=== PATIENT | male | born 1980 | race Hispanic/Latino ===

== ENCOUNTER 2024-05-11 06:47 | Inpatient (IN) | payer SELFPAY ==
[2024-05-11] MEDS ORDERED: Morphine 4 MG/ML VIAL ONE ×2 (07:41→09:50)
[2024-05-11] MEDS ORDERED: Ondansetron PF 4 MG/2 ML Vial ONE (07:41)
[2024-05-11 08:03] LABS: #Basophils 0.04 10x3/uL (0.0-0.2); %Basophils 0.6 % (0.0-1.0); %Eosinophils 13.8 % (0.0-10.0); %Lymphocytes 20.5 % (21.0-51.0); %Monocytes 7.1 % (0.0-10.0); %Neutrophils 57.7 % (42.0-75.0); Hematocrit 40.4 % (42.0-52.0); Hemoglobin 14.3 g/dL (14.0-18.0); Mean Corpuscular HGB CONC 35.4 g/dL (32.0-36.0); Mean Corpuscular Hemoglobin 28.4 pg (27.0-31.0); Mean Corpuscular Volume 80.2 fL (78.0-98.0); Mean Platelet Volume 10.3 fL (7.4-10.4); Platelet Count 245 10x3/uL (130-400); RBC Distribution Width 11.9 % (11.5-14.5); Red Blood Cell (RBC) Count 5.04 mill/uL (4.70-6.10)
[2024-05-11 08:16] LABS: ALT (SGPT) 43 U/L (8-55); AST (SGOT) 27 U/L (5-34); Albumin 3.6 g/dL (3.5-5.0); Alkaline Phosphatase 102 U/L (40-110); Anion Gap 14 mmol/L (10-20); BUN (Urea Nitrogen) 14 mg/dL (8.9-20.6); Bilirubin, Total 0.7 mg/dL (0.2-1.2); Calc. Creatinine Clearance 0 mL/min (70-130); Calcium 9.3 mg/dL (7.8-10.44); Carbon Dioxide 24 mmol/L (22-29); Chloride 99 mmol/L (98-107); Estimated GFR 114; Globulin 3.5 g/dL (2.4-3.5); Glucose 301 mg/dL (70-105); Potassium 3.6 mmol/L (3.5-5.1); Protein, Total 7.1 g/dL (6.0-8.3); Sodium 133 mmol/L (136-145)
[2024-05-11] MEDS ORDERED: Sodium Chloride 0.9% 100 ML ONE (09:33)
[2024-05-11] MEDS ORDERED: Piperacillin/Tazobactam 4.5 GM VIAL ONE (09:33)
[2024-05-11] MEDS ORDERED: Ketorolac Tromethamine 30 MG (1 mL) VIAL ONE (09:49)
[2024-05-11 10:49] LABS: Hemoglobin A1c 12.1 % (4.0-6.0)
[2024-05-11] MEDS ORDERED: Ondansetron ODT 4 MG TAB PO PRN (11:09)
[2024-05-11] MEDS ORDERED: Ondansetron PF 4 MG/2 ML Vial IVP PRN (11:09)
[2024-05-11] MEDS ORDERED: Dextrose 5% in Water 1,000 ML IV PRN (11:13)
[2024-05-11] MEDS ORDERED: Dextrose 50% Abboject 50 ML SYRINGE SLOW IVP PRN (11:13)
[2024-05-11] MEDS ORDERED: Glucagon 1 MG/ML KIT IM PRN (11:13)
[2024-05-11] MEDS ORDERED: Acetaminophen 500 MG TAB PO PRN (11:13)
[2024-05-11 11:29] VITALS: BMI 30.3
[2024-05-11] MEDS: Vancomycin (BATCH) 2 GM in Premix 1 BAG IVPB SCH (11:55)
[2024-05-11] MEDS: FLU (Fluarix Triv) TS24-25(6MOS UP)/PF 45 MCG/0.5 ML Syringe IM ONE (12:25)
[2024-05-11] MEDS: Piperacillin/Tazobactam 3.375 GM in Sodium Chloride 0.9% 100 ML IVPB SCH (13:22)
[2024-05-11] MEDS: Insulin Lispro 100 UNIT/ML 10 ML VIAL SC PRN (13:22)
[2024-05-11] MEDS ORDERED: Iopamidol-370 76% 500 ML MDV (1 ML CHARGE) ONE (14:23)
[2024-05-11] MEDS: Acetaminophen/Codeine 30-300mg Tablet PO PRN (16:34)
[2024-05-11] MEDS: Senokot 8.6 MG TAB PO SCH (17:20)
[2024-05-12] MEDS: Acetaminophen/Codeine 30-300mg Tablet PO PRN (04:29)
[2024-05-12 07:34] LABS: #Basophils 0.03 10x3/uL (0.0-0.2); %Basophils 0.4 % (0.0-1.0); %Eosinophils 13.9 % (0.0-10.0); %Lymphocytes 19.3 % (21.0-51.0); %Neutrophils 58.1 % (42.0-75.0); Mean Corpuscular HGB CONC 35.1 g/dL (32.0-36.0); Mean Corpuscular Hemoglobin 28.4 pg (27.0-31.0); Mean Corpuscular Volume 80.8 fL (78.0-98.0); Mean Platelet Volume 10.8 fL (7.4-10.4); Platelet Count 223 10x3/uL (130-400); RBC Distribution Width 11.9 % (11.5-14.5); Red Blood Cell (RBC) Count 4.58 mill/uL (4.70-6.10)
[2024-05-12] MEDS: Insulin Glargine 30 UNITS/0.3 ML VIAL SC SCH ×2 (08:04→20:58)
[2024-05-12] MEDS: Lisinopril 10 MG TAB PO SCH (08:04)
[2024-05-12] MEDS: Enoxaparin 40 MG (0.4 mL) SYRINGE SC SCH (08:04)
[2024-05-12] MEDS: Hydrochlorothiazide 25 MG TAB PO SCH (08:05)
[2024-05-12] MEDS: Vancomycin (BATCH) 2 GM in Premix 1 BAG IVPB SCH (08:35)
[2024-05-12] MEDS: Ketorolac Tromethamine 30 MG (1 mL) VIAL IVP PRN (11:29)
[2024-05-12 11:43] VITALS: BMI 30.3
[2024-05-12] MEDS ORDERED: EPINEPHrine 1 MG/ML VIAL ONE (15:28)
[2024-05-12] MEDS ORDERED: Bupivacaine 0.25% HCL 30 ML VIAL ONE (15:28)
[2024-05-12] MEDS ORDERED: Lidocaine 1% PF 5 ML VIAL ONE (15:36)
[2024-05-12] MEDS ORDERED: Rocuronium Bromide 10 MG/ML (10ML VIAL) ONE (15:36)
[2024-05-12] MEDS ORDERED: Ondansetron PF 4 MG/2 ML Vial ONE (15:36)
[2024-05-12] MEDS ORDERED: fentaNYL PF 100 MCG/2 ML SYRINGE ONE (15:36)
[2024-05-12] MEDS ORDERED: PROPOFOL 20 ML ONE (15:36)
[2024-05-12] MEDS ORDERED: SUCCINYLCHOLINE/SOD CL,ISO/PF 200 MG/10 ML SYRINGE FS ONE (15:49)
[2024-05-12] MEDS ORDERED: SUGAMMADEX SODIUM 200 MG/2 ML VIAL ONE ×2 (16:08→16:26)
[2024-05-12] MEDS ORDERED: fentaNYL 50 mcg/mL 1 mL Vial ONE (17:02)
[2024-05-13] MEDS: Sodium Chloride 0.9% 100 ML ONE (00:34)
[2024-05-13 05:55] LABS: #Basophils 0.04 10x3/uL (0.0-0.2); %Basophils 0.6 % (0.0-1.0); %Eosinophils 10.1 % (0.0-10.0); %Lymphocytes 25.1 % (21.0-51.0); %Monocytes 7.3 % (0.0-10.0); %Neutrophils 56.8 % (42.0-75.0); Hematocrit 37.7 % (42.0-52.0); Hemoglobin 13.3 g/dL (14.0-18.0); Mean Corpuscular HGB CONC 35.3 g/dL (32.0-36.0); Mean Corpuscular Hemoglobin 28.5 pg (27.0-31.0); Mean Corpuscular Volume 80.9 fL (78.0-98.0); Mean Platelet Volume 10.2 fL (7.4-10.4); Platelet Count 238 10x3/uL (130-400); Red Blood Cell (RBC) Count 4.66 mill/uL (4.70-6.10)
[2024-05-13 06:35] LABS: Vancomycin, Random 10.6 ug/mL (See Comment)
[2024-05-13 06:39] LABS: Anion Gap 12 mmol/L (10-20); BUN (Urea Nitrogen) 13 mg/dL (8.9-20.6); Calc. Creatinine Clearance 188 mL/min (70-130); Calcium 8.8 mg/dL (7.8-10.44); Carbon Dioxide 23 mmol/L (22-29); Chloride 103 mmol/L (98-107); Estimated GFR 117; Glucose 181 mg/dL (70-105); Sodium 134 mmol/L (136-145)
[2024-05-13] MEDS: Polyethylene Glycol 3350 17 GM Packet PO SCH (10:52)
[2024-05-13] MEDS: Senokot S 8.6-50 MG TAB PO SCH (10:52)
[2024-05-13] MEDS: Piperacillin/Tazobactam 3.375 GM in Sodium Chloride 0.9% 100 ML IVPB SCH (10:55)
[2024-05-13] MEDS ORDERED: Vancomycin (BATCH) 1.5 GM in Premix 1 BAG IVPB SCH (14:00)
[2024-05-13] MEDS: Vancomycin 1.5 GRAM/300 ML BAG 1.5 GM in Premix 1 BAG IVPB SCH (15:28)
[2024-05-13] MEDS ORDERED: Phenol 177 ML BOT PO PRN (15:32)
[2024-05-13] MEDS ORDERED: Lactulose 20 GM (30 mL) UDCUP PO PRN (15:32)
[2024-05-13] MEDS: Lactulose 20 GM (30 mL) UDCUP PO SCH (15:39)
[2024-05-13] MEDS: Phenol 177 ML BOT PO PRN (16:00)
[2024-05-13] MEDS: metFORMIN 500 MG TAB PO SCH (20:48)
[2024-05-14 06:27] LABS: #Basophils 0.03 10x3/uL (0.0-0.2); %Basophils 0.6 % (0.0-1.0); %Eosinophils 17.9 % (0.0-10.0); %Lymphocytes 28.1 % (21.0-51.0); %Monocytes 8.3 % (0.0-10.0); %Neutrophils 44.7 % (42.0-75.0); Hematocrit 36.6 % (42.0-52.0); Hemoglobin 12.6 g/dL (14.0-18.0); Mean Corpuscular HGB CONC 34.4 g/dL (32.0-36.0); Mean Corpuscular Hemoglobin 28.4 pg (27.0-31.0); Mean Corpuscular Volume 82.6 fL (78.0-98.0); Mean Platelet Volume 10.3 fL (7.4-10.4); Platelet Count 233 10x3/uL (130-400); RBC Distribution Width 11.9 % (11.5-14.5); Red Blood Cell (RBC) Count 4.43 mill/uL (4.70-6.10)
[2024-05-14 06:49] LABS: Anion Gap 12 mmol/L (10-20); BUN (Urea Nitrogen) 12 mg/dL (8.9-20.6); Calc. Creatinine Clearance 194 mL/min (70-130); Calcium 8.8 mg/dL (7.8-10.44); Carbon Dioxide 26 mmol/L (22-29); Chloride 103 mmol/L (98-107); Estimated GFR 118; Glucose 137 mg/dL (70-105); Potassium 3.8 mmol/L (3.5-5.1); Sodium 137 mmol/L (136-145)
[2024-05-15 05:31] LABS: #Basophils 0.04 10x3/uL (0.0-0.2); %Basophils 0.6 % (0.0-1.0); %Eosinophils 16.6 % (0.0-10.0); %Lymphocytes 23.2 % (21.0-51.0); %Monocytes 8.5 % (0.0-10.0); %Neutrophils 50.9 % (42.0-75.0); Hematocrit 37.8 % (42.0-52.0); Hemoglobin 13.1 g/dL (14.0-18.0); Mean Corpuscular HGB CONC 34.7 g/dL (32.0-36.0); Mean Corpuscular Hemoglobin 28.2 pg (27.0-31.0); Mean Corpuscular Volume 81.3 fL (78.0-98.0); Mean Platelet Volume 10.1 fL (7.4-10.4); Platelet Count 246 10x3/uL (130-400); RBC Distribution Width 11.9 % (11.5-14.5); Red Blood Cell (RBC) Count 4.65 mill/uL (4.70-6.10)
[2024-05-15 06:24] LABS: Vancomycin, Random 20.3 ug/mL (See Comment)
[2024-05-15 06:26] LABS: Anion Gap 14 mmol/L (10-20); BUN (Urea Nitrogen) 10 mg/dL (8.9-20.6); Calc. Creatinine Clearance 174 mL/min (70-130); Carbon Dioxide 27 mmol/L (22-29); Chloride 103 mmol/L (98-107); Estimated GFR 114; Glucose 157 mg/dL (70-105); Potassium 3.6 mmol/L (3.5-5.1); Sodium 140 mmol/L (136-145)
[2024-05-15 08:09] VITALS: BP 129/76; TEMP 97.8
== END 2024-05-15 12:58 | disposition home or self-care (01) | DRG 345 ==
LOC: ERS 06:47 → T4-B 09:47 → INTOOBSV 09:47 → OBSVTOIN 05-12 11:06
PROVIDERS: ADMIT Internal Medicine; ATTEND Family Medicine
PROC: 0D9P0ZZ Drainage of Rectum, Open Approach (ICD-10-PCS; principal; 2024-05-12)
DX: K61.1 Rectal abscess (principal); E87.1 Hypo-osmolality and hyponatremia; I10 Essential (primary) hypertension; E78.5 Hyperlipidemia, unspecified; E11.65 Type 2 diabetes mellitus with hyperglycemia; Z90.49 Acquired absence of other specified parts of digestive tract
CPT/HCPCS: 36415; 36416; 74177; 80048; 80053; 80202; 83036; 83605; 85025; 90656; 96365; 96366; 96368; 96375; 96376; 97139; J0171; J0665; J1650; J1815; J1885; J2272; J2405; J2543; J2704; J3010; J3370; Q9967